=== PATIENT | female | born 1980 | race American Indian/Alaskan Native ===

== ENCOUNTER 2019-06-20 00:43 | Outpatient (CLI) | payer MEDICAID ==
[2019-06-20 01:00] VITALS: BP 133/79
[2019-06-20] MEDS ORDERED: LACTATED RINGERS 1,000 ML IV ONE (01:09)
[2019-06-20] MEDS ORDERED: BUTORPHANOL 2 MG/1 ML INJ IV ONE (01:09)
[2019-06-20] MEDS ORDERED: ceFAZolin/Water 2 GM/20 ML 2 GM/20 ML SYRINGE IV ONE (01:29)
--- NOTE | 2019-06-20 02:33 | Ultrasound Report ---
ULTRASOUND OBSTETRIC LIMITED INDICATION / CLINICAL INFORMATION: extreme abd pain. TECHNIQUE: Transabdominal ultrasound imaging. COMPARISON: None available. FINDINGS: HEART RATE (beats per minute): 154 AMNIOTIC FLUID INDEX (cm) = not measured PRESENTATION: Breech. ADDITIONAL FINDINGS: No sonographic evidence of placental abruption. The placenta is located posterio r/fundal/left lateral in position -grade 1. IMPRESSION: No sonographic evidence of placental abruption. Signer Name: Bridget Bojorquez MD Signed: 06/20/2019 2:28 AM Workstation Name: [email or web address]
== END 2019-06-20 02:54 | disposition home or self-care (01) ==
LOC: TRG 00:43
PROVIDERS: ATTEND Obstetrics & Gynecology
DX: O26.892 Other specified pregnancy related conditions, second trimester (principal); R10.2 Pelvic and perineal pain; Z3A.27 27 weeks gestation of pregnancy
CPT/HCPCS: 76815

== ENCOUNTER 2019-08-31 00:30 | Inpatient (IN) | payer MEDICAID ==
[2019-08-31] MEDS ORDERED: CLINDAMYCIN 600 MG/50 mL 600 MG/50 ML BAG IV ONE (02:50)
[2019-08-31] MEDS ORDERED: OXYTOCIN 20 UNIT/1000ML DRIP 20 UNITS/1,000 ML BAG IV SCH (03:00)
[2019-08-31] MEDS ORDERED: CLINDAMYCIN 600 MG/50 mL 600 MG/50 ML BAG IV SCH (03:00)
[2019-08-31] MEDS: LACTATED RINGERS 1,000 ML IV SCH ×2 (03:03→04:22)
[2019-08-31 03:13] LABS: Hematocrit 35.3 % (30.3-42.9); Hemoglobin 11.5 gm/dl (10.1-14.3); Mean Corpuscular HGB Conc 33 % (30-34); Mean Corpuscular Volume 84 fl (79-97); Platelet Count 290 K/mm3 (140-440); Red Blood Count 4.21 M/mm3 (3.65-5.03); Red Cell Distribution Width 16.8 % (13.2-15.2)
[2019-08-31] MEDS ORDERED: ePHEDrine SULFATE 50 MG/1 ML INJ ONE (03:35)
[2019-08-31 03:40] LABS: Hepatitis C Virus Antibody Non-Reactive (NonReactive)
[2019-08-31] MEDS ORDERED: ePHEDrine SULFATE 50 MG/1 ML INJ IV PRN (03:40)
[2019-08-31] MEDS ORDERED: NALOXONE 2 MG/2 ML INJ IV PRN (03:40)
[2019-08-31] MEDS ORDERED: fentaNYL-BUPIV 2 MCG/ML-0.125% 200 MCG/100 ML BAG EPIDURAL SCH (04:00)
[2019-08-31 04:24] LABS: Amphetamine Screen,Urine PRESUMPTIVE NEGATIVE; Benzodiazepines Screen,Urine PRESUMPTIVE NEGATIVE; Cocaine Screen,Urine PRESUMPTIVE NEGATIVE; Methadone Screen,Urine PRESUMPTIVE NEGATIVE; Opiate Screen,Urine PRESUMPTIVE NEGATIVE
[2019-08-31 04:34] LABS: Bacteria,Urine 1+ /HPF (Negative); Bilirubin,Urine NEG (Negative); Blood,Urine NEG (Negative); Color,Urine Yellow (Yellow); Mucus,Urine 2+ /HPF; Protein,Urine <15 mg/dL mg/dL (Negative); Urobilinogen,Urine < 2.0 mg/dL (<2.0)
[2019-08-31 05:13] LABS: Cannabinoid Screen,Urine PRESUMPTIVE POSITIVE
[2019-08-31] MEDS: OXYTOCIN 20 UNIT/1000ML DRIP 20 UNITS/1,000 ML BAG IV SCH ×2 (07:53→08:48)
[2019-08-31] MEDS: IBUPROFEN 600 MG TAB PO SCH ×3 (08:53→21:43)
[2019-08-31] MEDS ORDERED: ONDANSETRON 4 MG/2 ML INJ IV PRN (09:00)
[2019-08-31] MEDS ORDERED: PROMETHAZINE 25 MG TAB PO PRN (09:00)
[2019-08-31] MEDS ORDERED: diphenhydrAMINE 25 MG CAP PO PRN (09:00)
[2019-08-31] MEDS ORDERED: LANOLIN/ZINC/DIMETHICONE (LANSINOH) 7 GM TP PRN (09:00)
[2019-08-31] MEDS ORDERED: PROMETHAZINE 25 MG RECT SUPP PR PRN (09:00)
[2019-08-31] MEDS ORDERED: WITCH HAZEL/ GLYCERIN PAD TP PRN (09:00)
[2019-08-31] MEDS ORDERED: ACETAMINOPHEN 325 MG TAB PO PRN (09:00)
[2019-08-31 20:28] LABS: Hematocrit 35.2 % (30.3-42.9); Hemoglobin 11.4 gm/dl (10.1-14.3)
[2019-08-31] MEDS ORDERED: MAGNESIUM HYDROXIDE (MOM) ORAL LIQD UDC PO PRN (22:00)
[2019-09-01] MEDS: IBUPROFEN 600 MG TAB PO SCH ×3 (03:02→18:37)
[2019-09-02] MEDS: IBUPROFEN 600 MG TAB PO SCH ×2 (00:24→05:19)
[2019-09-02 13:17] VITALS: BP 131/77
== END 2019-09-02 13:30 | disposition home or self-care (01) | DRG 775 ==
LOC: TRG 00:30 → APU 00:31 → TRG 00:53 → LD 00:54 → OBSVTOIN 09:46 → OB 10:04
PROVIDERS: ADMIT Obstetrics & Gynecology; ATTEND Obstetrics & Gynecology
PROC: 10E0XZZ Delivery of Products of Conception, External Approach (ICD-10-PCS; principal; 2019-08-31)
PROC: 3E0R3BZ Introduction of Anesthetic Agent into Spinal Canal, Percutaneous Approach (ICD-10-PCS; 2019-08-31)
PROC: 00HU33Z Insertion of Infusion Device into Spinal Canal, Percutaneous Approach (ICD-10-PCS; 2019-08-31)
DX: O99.214 Obesity complicating childbirth (principal); E66.9 Obesity, unspecified; O99.324 Drug use complicating childbirth; F19.90 Other psychoactive substance use, unspecified, uncomplicated; Z3A.38 38 weeks gestation of pregnancy; Z37.0 Single live birth; Z88.5 Allergy status to narcotic agent; Z88.0 Allergy status to penicillin
CPT/HCPCS: 36415; 59025; 80307; 81001; 85014; 85018; 85027; 86592; 86706; 86762; 86803; 86850; 86900; 86901; 87806; 88307; G0378; J2590; J7120